=== PATIENT | male | born 1945 | race Two or more races ===

== ENCOUNTER 2020-04-06 01:27 | Inpatient (IN) | payer MEDICARE, MEDICAID ==
[~2020-04-06] VITALS: Ht 162.6 cm; Wt 104.5 kg
[2020-04-06] VITALS (8 sets, daily range): BP systolic 105–187; BP diastolic 59–96
[2020-04-06] MEDS ORDERED: IOVERSOL 350 MG/ML 100 ML VIAL ONE (02:08)
[2020-04-06] MEDS ORDERED: SODIUM CHLORIDE 0.9% 100 ML ONE (02:08)
[2020-04-06] MEDS ORDERED: ONDANSETRON HCL 4 MG/2 ML VIAL IVP PRN ×2 (03:15→07:30)
[2020-04-06] MEDS ORDERED: ACETAMINOPHEN 325 MG TABLET PO PRN ×2 (03:15→07:30)
[2020-04-06] MEDS ORDERED: HEPARIN SODIUM,PORCINE 5,000 UNITS/ML VIAL IVP PRN ×2 (04:45)
[2020-04-06 05:07] LABS: PROTHROMBIN TIME 10.4 SEC (9.4-11.6)
[2020-04-06] MEDS ORDERED: HEPARIN SODIUM,PORCINE 5,000 UNITS/ML VIAL ONE (06:14)
[2020-04-06] MEDS ORDERED: HEPARIN SODIUM,PORCINE 1,000 UNITS/ML VIAL ONE (06:15)
[2020-04-06] MEDS: HEPARIN SODIUM 25000 UNITS/D5W 250 ML IV PRN ×2 (06:18→21:57)
[2020-04-06] MEDS ORDERED: MAGNESIUM HYDROXIDE SUSPENSION 30 ML UDCUP PO PRN (07:30)
[2020-04-06] MEDS ORDERED: BISACODYL 10 MG RECTAL RECTAL SUPPOSITORY PR PRN (07:30)
[2020-04-06] MEDS ORDERED: HYDROCODONE/ACETAMINOPHEN 5-325 MG TABLET PO PRN (07:30)
[2020-04-06] MEDS ORDERED: ZOLPIDEM TARTRATE 5 MG TABLET PO PRN (07:30)
[2020-04-06] MEDS ORDERED: HEPARIN SODIUM,PORCINE 5,000 UNITS/ML VIAL SQ SCH (08:00)
[2020-04-06 08:05] LABS: ABG A-A DIFF O2 603.4 mmHg (10-20.0); ABG BASE EXCESS 7.1 mmol/L (-2.0-3.0); ABG CARBOXYHEMOGLOBIN 0.4 % (0.0-1.5); ABG HCO3 28.8 mmol/L (22.0-26.0); ABG METHEMOGLOBIN 0.2 % (0.0-1.5); ABG OXYGEN CONTENT 17.5 mL/dL (15.0-23.0); ABG OXYGEN SATURATION 85.4 % (95.0-98.0); ABG OXYHEMOGLOBIN 84.9 % (94.0-100.0); ABG PCO2 59 mmHg (35-45); ABG PH 7.356 (7.35-7.450); ABG TOTAL HEMOGLOBIN 14.7 G/dL (12.0-18.0); PO2, ARTERIAL BG 50.4 mmHg (75.0-83.0); SOURCE, BLOOD GAS ARTERIAL; TEMPERATURE, FAHRENHEIT, BG 98.5 FAHREN (96.0-98.6)
[2020-04-06 08:06] LABS: O2 DEVICE,BLOOD GAS NRB (ROOM AIR); SITE, BLOOD GAS RT RADIAL
[2020-04-06] MEDS ORDERED: AZITHROMYCIN 500 MG TABLET PO SCH (09:00)
[2020-04-06 09:29] LABS: BASOPHILS % (AUTO) 0.2 % (0.0-2.0); EOSINOPHILS % (AUTO) 0 % (1.0-6.0); HEMATOCRIT 41.1 % (41-53); HEMOGLOBIN 13.8 g/dL (13.5-17.5); LYMPHOCYTES # (AUTO) 0.4 K/uL (1.0-4.8); LYMPHOCYTES % (AUTO) 4.8 % (22.0-44.0); MEAN CORPUSCULAR HEMOGLOBIN 31.8 pg (26.0-34.0); MEAN CORPUSCULAR HGB CONC 33.6 G/dL (31.0-37.0); MEAN CORPUSCULAR VOLUME 95 fL (80-100); MONOCYTES # (AUTO) 0.4 K/uL (0.1-1.0); MONOCYTES % (AUTO) 4.7 % (2.0-9.0); NEUTROPHILS # (AUTO) 7.4 K/uL (1.8-7.7); PLATELET COUNT (AUTO) 207 K/uL (150-450); RED BLOOD CELL COUNT(AUTO) 4.34 MIL/uL (4.50-5.90); RED CELL DISTRIBUTION WIDTH 12.9 % (11.5-14.5)
[2020-04-06 09:33] LABS: NEUTROPHILS % (AUTO) 90.3 % (40.0-70.0)
[2020-04-06 09:45] LABS: ANION GAP 7 mmol/L (8-16); CALCIUM, TOTAL 8.3 mg/dL (8.8-10.5); CARBON DIOXIDE 35 mmol/L (22-29); CHLORIDE 100 mmol/L (98-107); CREATININE 1.09 mg/dL (0.60-1.30); GLUCOSE,RANDOM 184 mg/dL (70-110); POTASSIUM 4.1 mmol/L (3.5-5.1); SODIUM SERUM 142 mmol/L (136-145); UREA NITROGEN, BLOOD 18 mg/dL (7-18)
[2020-04-06 09:49] LABS: GLOMERULAR FILTR. RATE CALC > 60 mL/min (>60)
[2020-04-06 09:54] LABS: D-DIMER 0.66 mg/L FEU (0.00-0.50)
[2020-04-06] MEDS: DOCUSATE SODIUM 100 MG CAPSULE PO SCH ×2 (10:18→21:56)
[2020-04-06] MEDS: ASCORBIC ACID 500 MG TABLET PO SCH ×3 (10:18→21:56)
[2020-04-06] MEDS: THIAMINE 100 MG/ML 2 ML VIAL IVP SCH ×2 (10:18→21:55)
[2020-04-06] MEDS: PANTOPRAZOLE SODIUM 40 MG DR TABLET PO SCH (10:18)
[2020-04-06] MEDS: ZINC SULFATE 220 MG CAPSULE PO SCH ×2 (10:19→21:56)
[2020-04-06 10:24] LABS: ALANINE AMINOTRANSFERASE 46 U/L (12-78); ALBUMIN 2.8 g/dL (3.4-5.0); ALKALINE PHOSPHATASE 46 U/L (46-116); ASPARTATE AMINOTRANSFERASE 64 U/L (15-37); BILIRUBIN,TOTAL 0.8 mg/dL (0.1-1.0); C-REACTIVE PROTEIN QUANT 13.42 mg/dL (0.00-0.30); FERRITIN 1382 ng/mL (26-388); LACTATE DEHYDROGENASE 542 U/L (85-227); TOTAL PROTEIN, SERUM 7.7 g/dL (6.4-8.2)
[2020-04-06] MEDS ORDERED: HydrALAZINE HCL 20 MG/ML VIAL IVP PRN (11:30)
[2020-04-06 11:45] LABS: B-TYPE NATRIURETIC PEPTIDE 780 pg/mL (0-100)
[2020-04-06] MEDS: AmLODIPine BESYLATE 10 MG TABLET PO SCH (12:21)
[2020-04-06] MEDS: MORPHINE SULFATE 2 MG/ML SYRINGE IVP PRN (12:21)
[2020-04-06] MEDS ORDERED: SODIUM CHLORIDE 0.9% 250 ML IV ONE (12:42)
[2020-04-06] MEDS ORDERED: RINGERS SOLUTION,LACTATED 1,000 ML IV ONE (12:45)
[2020-04-06] MEDS ORDERED: REMDESIVIR **INVESTIGATIONAL** 200 MG in SODIUM CHLORIDE 0.9% 210 ML IV ONE (16:00)
[2020-04-06 16:55] LABS: ABG BASE EXCESS 7.9 mmol/L (-2.0-3.0); ABG CARBOXYHEMOGLOBIN 0.2 % (0.0-1.5); ABG HCO3 29.4 mmol/L (22.0-26.0); ABG METHEMOGLOBIN 0.3 % (0.0-1.5); ABG OXYGEN CONTENT 17.7 mL/dL (15.0-23.0); ABG OXYGEN SATURATION 90.5 % (95.0-98.0); ABG PH 7.317 (7.35-7.450); PO2, ARTERIAL BG 62.4 mmHg (75.0-83.0); SOURCE, BLOOD GAS ARTERIAL
[2020-04-06 16:56] LABS: ABG PCO2 68 mmHg (35-45); O2 DEVICE,BLOOD GAS VENT (ROOM AIR); PEEP,BG 15 cm H2O; SITE, BLOOD GAS ARTERIAL LINE; SPONTANEOUS VT, BG 404 ml; VT, ABG 450 ml
[2020-04-06] MEDS: PROPOFOL 1000 MG/ISO-OSM 100 ML IV PRN (18:42)
[2020-04-06] MEDS ORDERED: HYDROXYCHLOROQUINE SULFATE 200 MG TABLET PO ONE (23:30)
[2020-04-07] VITALS (9 sets, daily range): BP systolic 97–152; BP diastolic 42–54
[2020-04-07] MEDS: PROPOFOL 1000 MG/ISO-OSM 100 ML IV PRN ×6 (00:49→23:52)
[2020-04-07 06:41] LABS: BASOPHILS % (AUTO) 0.3 % (0.0-2.0); EOSINOPHILS % (AUTO) 0 % (1.0-6.0); HEMATOCRIT 39.2 % (41-53); HEMOGLOBIN 13.1 g/dL (13.5-17.5); LYMPHOCYTES # (AUTO) 0.5 K/uL (1.0-4.8); LYMPHOCYTES % (AUTO) 6.4 % (22.0-44.0); MEAN CORPUSCULAR HEMOGLOBIN 31.6 pg (26.0-34.0); MEAN CORPUSCULAR HGB CONC 33.3 G/dL (31.0-37.0); MEAN CORPUSCULAR VOLUME 95 fL (80-100); MONOCYTES # (AUTO) 0.3 K/uL (0.1-1.0); MONOCYTES % (AUTO) 3.5 % (2.0-9.0); NEUTROPHILS # (AUTO) 7.5 K/uL (1.8-7.7); PLATELET COUNT (AUTO) 221 K/uL (150-450); RED BLOOD CELL COUNT(AUTO) 4.12 MIL/uL (4.50-5.90); RED CELL DISTRIBUTION WIDTH 13.4 % (11.5-14.5)
[2020-04-07 06:49] LABS: NEUTROPHILS % (AUTO) 89.8 % (40.0-70.0)
[2020-04-07 07:20] LABS: D-DIMER 0.69 mg/L FEU (0.00-0.50)
[2020-04-07 08:23] LABS: ALBUMIN 2.4 g/dL (3.4-5.0); BILIRUBIN,TOTAL 0.6 mg/dL (0.1-1.0); C-REACTIVE PROTEIN QUANT 19.18 mg/dL (0.00-0.30); CREATININE 1.69 mg/dL (0.60-1.30)
[2020-04-07] MEDS: DOCUSATE SODIUM 100 MG CAPSULE PO SCH ×2 (08:57→21:03)
[2020-04-07] MEDS: THIAMINE 100 MG/ML 2 ML VIAL IVP SCH ×2 (08:57→21:04)
[2020-04-07] MEDS: ZINC SULFATE 220 MG CAPSULE PO SCH ×2 (08:57→21:03)
[2020-04-07] MEDS: PANTOPRAZOLE SODIUM 40 MG DR TABLET PO SCH (08:57)
[2020-04-07] MEDS: AmLODIPine BESYLATE 10 MG TABLET PO SCH (08:57)
[2020-04-07] MEDS: ASCORBIC ACID 500 MG TABLET PO SCH ×3 (08:57→21:03)
[2020-04-07] MEDS ORDERED: SODIUM CHLORIDE 0.9% 250 ML IV ONE (18:08)
[2020-04-07] MEDS: REMDESIVIR **INVESTIGATIONAL** 100 MG in SODIUM CHLORIDE 0.9% 230 ML IV SCH (19:16)
[2020-04-07] MEDS: HEPARIN SODIUM 25000 UNITS/D5W 250 ML IV PRN (20:00)
[2020-04-07] MEDS ORDERED: SODIUM CHLORIDE 0.9% 500 ML IV ONE (23:46)
[2020-04-08] VITALS: BP 115/42
[2020-04-08] MEDS: PROPOFOL 1000 MG/ISO-OSM 100 ML IV PRN ×6 (03:30→23:10)
[2020-04-08 04:00] VITALS: BP 112/42
[2020-04-08 05:58] LABS: D-DIMER 1.07 mg/L FEU (0.00-0.50)
[2020-04-08 06:24] LABS: ALBUMIN 2.2 g/dL (3.4-5.0); BILIRUBIN,TOTAL 0.5 mg/dL (0.1-1.0); C-REACTIVE PROTEIN QUANT 22.59 mg/dL (0.00-0.30); CALCIUM, TOTAL 7.4 mg/dL (8.8-10.5); CREATININE 2.47 mg/dL (0.60-1.30); POTASSIUM 3.8 mmol/L (3.5-5.1); TOTAL PROTEIN, SERUM 6.5 g/dL (6.4-8.2)
[2020-04-08 08:00] VITALS: BP 119/42
[2020-04-08 08:32] LABS: ABG BASE EXCESS 5.6 mmol/L (-2.0-3.0); ABG CARBOXYHEMOGLOBIN 0.5 % (0.0-1.5); ABG HCO3 28.2 mmol/L (22.0-26.0); ABG METHEMOGLOBIN 0.3 % (0.0-1.5); ABG OXYGEN CONTENT 16.7 mL/dL (15.0-23.0); ABG OXYGEN SATURATION 95.9 % (95.0-98.0); ABG OXYHEMOGLOBIN 95.1 % (94.0-100.0); ABG PCO2 58 mmHg (35-45); ABG TOTAL HEMOGLOBIN 12.4 G/dL (12.0-18.0); O2 DEVICE,BLOOD GAS VENTILATOR (ROOM AIR); PEEP,BG 15 cm H2O; PO2, ARTERIAL BG 84.2 mmHg (75.0-83.0); SITE, BLOOD GAS ARTERIAL LINE; SOURCE, BLOOD GAS ARTERIAL; TEMPERATURE, FAHRENHEIT, BG 98.6 FAHREN (96.0-98.6); VT, ABG 450 ml
[2020-04-08] MEDS: ASCORBIC ACID 500 MG TABLET PO SCH ×3 (08:32→20:37)
[2020-04-08] MEDS: PANTOPRAZOLE SODIUM 40 MG DR TABLET PO SCH (08:32)
[2020-04-08] MEDS: THIAMINE 100 MG/ML 2 ML VIAL IVP SCH ×2 (08:32→20:38)
[2020-04-08] MEDS: ZINC SULFATE 220 MG CAPSULE PO SCH ×2 (08:32→20:37)
[2020-04-08] MEDS: DOCUSATE SODIUM 100 MG CAPSULE PO SCH ×2 (08:32→20:37)
[2020-04-08] MEDS: AmLODIPine BESYLATE 10 MG TABLET PO SCH (08:32)
[2020-04-08 12:00] VITALS: BP 142/42
[2020-04-08] MEDS: SODIUM CHLORIDE 0.9% 1,000 ML IV SCH (12:14)
[2020-04-08] MEDS: MORPHINE SULFATE 2 MG/ML SYRINGE IVP PRN ×2 (12:45→18:55)
[2020-04-08] MEDS: HEPARIN SODIUM 25000 UNITS/D5W 250 ML IV PRN (15:19)
[2020-04-08 16:00] VITALS: BP 138/42
[2020-04-08] MEDS ORDERED: DEXTROSE 50%-WATER 25 GM/50 ML SYRINGE IVP PRN (16:45)
[2020-04-08] MEDS: REMDESIVIR **INVESTIGATIONAL** 100 MG in SODIUM CHLORIDE 0.9% 230 ML IV SCH (18:00)
[2020-04-08] MEDS: INSULIN REGULAR, HUMAN 100 UNITS/ML SQ PRN ×2 (18:11→23:48)
[2020-04-08 20:00] VITALS: BP 142/39
[2020-04-08 20:37] LABS: GLUCOSE,POINT OF CARE 155 MG/DL (70-110)
[2020-04-08 20:37] LABS: GLUCOSE,POINT OF CARE 168 MG/DL (70-110)
[2020-04-08 21:01] LABS: CREATININE,URINE RANDOM 191.9 mg/dL (30.0-125.0)
[2020-04-08 21:02] LABS: APPEARANCE,URINE CLOUDY (CLEAR); BILIRUBIN,URINE NEGATIVE (NEGATIVE); GLUCOSE, URINE (UA) NEGATIVE (NEGATIVE); KETONES,URINE NEGATIVE (NEGATIVE); LEUKOCYTE ESTERASE ,URINE NEGATIVE (NEGATIVE); NITRATE,URINE NEGATIVE (NEGATIVE); OCCULT BLOOD,URINE LARGE (NEGATIVE); PROTEIN,URINE TRACE (NEGATIVE); UROBILINOGEN,URINE 0.2 mg/dL (<=1.0)
[2020-04-08 21:16] LABS: RBC,URINE 26-50 /HPF (0-2)
[2020-04-08 21:17] LABS: BACTERIA,URINE Many /HPF (None Seen); WBC,URINE 0-2 /HPF (0-5)
[2020-04-08 21:19] LABS: AMORPHOUS SEDIMENT,UR Few /LPF (None Seen); SQUAMOUS EPITHELIAL CELL,UR Rare /LPF (None Seen)
[2020-04-08 22:12] LABS: ABG A-A DIFF O2 596.6 mmHg (10-20.0); ABG BASE EXCESS 1.2 mmol/L (-2.0-3.0); ABG CARBOXYHEMOGLOBIN 0.3 % (0.0-1.5); ABG METHEMOGLOBIN 0.3 % (0.0-1.5); ABG OXYGEN CONTENT 16.4 mL/dL (15.0-23.0); ABG OXYGEN SATURATION 91.5 % (95.0-98.0); ABG PCO2 49 mmHg (35-45); ABG PH 7.356 (7.35-7.450); ABG TOTAL HEMOGLOBIN 12.8 G/dL (12.0-18.0); O2 DEVICE,BLOOD GAS VENTILATOR (ROOM AIR); PEEP,BG 15 cm H2O; SITE, BLOOD GAS ARTERIAL LINE; SOURCE, BLOOD GAS ARTERIAL; TEMPERATURE, FAHRENHEIT, BG 99.6 FAHREN (96.0-98.6); VT, ABG 450 ml
[2020-04-08] MEDS: FentaNYL CITRATE PF 500 MCG in DEXTROSE 5%-WATER 90 ML IV PRN (22:42)
[2020-04-08] MEDS: CISATRACURIUM BESYLATE 20 MG in DEXTROSE 5%-WATER 98 ML IV PRN ×3 (22:43→23:58)
[2020-04-09] VITALS: BP 149/58
[2020-04-09] MEDS: CISATRACURIUM BESYLATE 20 MG in DEXTROSE 5%-WATER 98 ML IV PRN ×6 (00:42→04:34)
[2020-04-09] MEDS: FentaNYL CITRATE PF 500 MCG in DEXTROSE 5%-WATER 90 ML IV PRN ×5 (00:52→18:09)
[2020-04-09 01:02] LABS: GLUCOSE,POINT OF CARE 211 MG/DL (70-110)
[2020-04-09] MEDS: PROPOFOL 1000 MG/ISO-OSM 100 ML IV PRN ×5 (03:13→20:37)
[2020-04-09 04:00] VITALS: BP 107/58
[2020-04-09] MEDS: SODIUM CHLORIDE 0.9% 1,000 ML IV SCH (04:34)
[2020-04-09] MEDS: HEPARIN SODIUM 25000 UNITS/D5W 250 ML IV PRN ×2 (05:41→21:38)
[2020-04-09] MEDS: INSULIN REGULAR, HUMAN 100 UNITS/ML SQ PRN ×2 (05:54→23:26)
[2020-04-09] MEDS: NOREPINEPHRINE BITARTRATE 16 MG in DEXTROSE 5%-WATER 234 ML IV PRN (06:01)
[2020-04-09 06:18] LABS: BASOPHILS % (AUTO) 0.2 % (0.0-2.0); EOSINOPHILS % (AUTO) 0.1 % (1.0-6.0); HEMATOCRIT 35.1 % (41-53); HEMOGLOBIN 11.8 g/dL (13.5-17.5); LYMPHOCYTES # (AUTO) 0.4 K/uL (1.0-4.8); LYMPHOCYTES % (AUTO) 3.8 % (22.0-44.0); MEAN CORPUSCULAR HGB CONC 33.6 G/dL (31.0-37.0); MEAN CORPUSCULAR VOLUME 95 fL (80-100); MONOCYTES # (AUTO) 0.3 K/uL (0.1-1.0); NEUTROPHILS # (AUTO) 10.6 K/uL (1.8-7.7); PLATELET COUNT (AUTO) 288 K/uL (150-450); RED BLOOD CELL COUNT(AUTO) 3.68 MIL/uL (4.50-5.90); RED CELL DISTRIBUTION WIDTH 13.4 % (11.5-14.5)
[2020-04-09] MEDS: CISATRACURIUM BESYLATE 50 MG in DEXTROSE 5%-WATER 245 ML IV PRN ×7 (06:28→23:24)
[2020-04-09 06:54] LABS: D-DIMER 2.49 mg/L FEU (0.00-0.50)
[2020-04-09 07:01] LABS: NEUTROPHILS % (AUTO) 92.9 % (40.0-70.0)
[2020-04-09 07:26] LABS: ALBUMIN 1.8 g/dL (3.4-5.0); BILIRUBIN,TOTAL 0.5 mg/dL (0.1-1.0); CALCIUM, TOTAL 6.9 mg/dL (8.8-10.5); CREATININE 3.14 mg/dL (0.60-1.30); MAGNESIUM 2.3 mg/dL (1.80-2.40); PHOSPHORUS 6.4 mg/dL (2.5-4.9); POTASSIUM 3.6 mmol/L (3.5-5.1); TOTAL PROTEIN, SERUM 6.2 g/dL (6.4-8.2)
[2020-04-09 07:46] LABS: C-REACTIVE PROTEIN QUANT 26.3 mg/dL (0.00-0.30)
[2020-04-09 08:00] VITALS: BP 116/42
[2020-04-09] MEDS: AmLODIPine BESYLATE 10 MG TABLET PO SCH (09:00)
[2020-04-09] MEDS: DOCUSATE SODIUM 100 MG CAPSULE PO SCH ×2 (09:06→20:35)
[2020-04-09] MEDS: ASCORBIC ACID 500 MG TABLET PO SCH ×3 (09:06→20:35)
[2020-04-09] MEDS: THIAMINE 100 MG/ML 2 ML VIAL IVP SCH ×2 (09:06→20:35)
[2020-04-09] MEDS: PANTOPRAZOLE SODIUM 40 MG DR TABLET PO SCH (09:06)
[2020-04-09] MEDS: ZINC SULFATE 220 MG CAPSULE PO SCH ×2 (09:07→20:35)
[2020-04-09 12:00] VITALS: BP 123/42
[2020-04-09 12:56] LABS: GLUCOSE,POINT OF CARE 236 MG/DL (70-110)
[2020-04-09 15:07] LABS: ABG A-A DIFF O2 588.4 mmHg (10-20.0); ABG BASE EXCESS 0.1 mmol/L (-2.0-3.0); ABG CARBOXYHEMOGLOBIN 0.4 % (0.0-1.5); ABG HCO3 23.2 mmol/L (22.0-26.0); ABG METHEMOGLOBIN 0.3 % (0.0-1.5); ABG OXYGEN CONTENT 16.1 mL/dL (15.0-23.0); ABG OXYGEN SATURATION 92.7 % (95.0-98.0); ABG OXYHEMOGLOBIN 92.1 % (94.0-100.0); ABG PH 7.227 (7.35-7.450); ABG TOTAL HEMOGLOBIN 12.4 G/dL (12.0-18.0); PO2, ARTERIAL BG 61.4 mmHg (75.0-83.0); SOURCE, BLOOD GAS ARTERIAL; TEMPERATURE, FAHRENHEIT, BG 95.5 FAHREN (96.0-98.6)
[2020-04-09 15:08] LABS: ABG PCO2 68 mmHg (35-45); O2 DEVICE,BLOOD GAS VENTILATOR (ROOM AIR); PEEP,BG 15 cm H2O; VT, ABG 450 ml
[2020-04-09 16:00] VITALS: BP 135/42
[2020-04-09] MEDS ORDERED: *CLINICAL-CEFEPIME DOSING CLINICAL ONE (17:45)
[2020-04-09] MEDS: DAPTOMYCIN 500 MG in SODIUM CHLORIDE 0.9% 50 ML IV SCH (19:16)
[2020-04-09] MEDS: CEFEPIME HCL 2 GM in DEXTROSE 5%-WATER 50 ML IV SCH (19:16)
[2020-04-09 19:37] LABS: SITE, BLOOD GAS ARTERIAL LINE
[2020-04-09 20:00] VITALS: BP 120/43
[2020-04-09] MEDS ORDERED: SODIUM CHLORIDE 0.9% 1,000 ML ONE (20:33)
[2020-04-10] VITALS: BP 117/46
[2020-04-10] MEDS: CISATRACURIUM BESYLATE 50 MG in DEXTROSE 5%-WATER 245 ML IV PRN ×9 (01:39→22:36)
[2020-04-10 04:00] VITALS: BP 100/43
[2020-04-10] MEDS: PROPOFOL 1000 MG/ISO-OSM 100 ML IV PRN ×4 (04:19→20:09)
[2020-04-10] MEDS: FentaNYL CITRATE PF 500 MCG in DEXTROSE 5%-WATER 90 ML IV PRN ×2 (04:19→14:48)
[2020-04-10] MEDS: INSULIN REGULAR, HUMAN 100 UNITS/ML SQ PRN ×2 (05:32→23:18)
[2020-04-10 06:07] LABS: HEMATOCRIT 34.4 % (41-53); HEMOGLOBIN 11.5 g/dL (13.5-17.5); MEAN CORPUSCULAR HEMOGLOBIN 31.7 pg (26.0-34.0); MEAN CORPUSCULAR HGB CONC 33.4 G/dL (31.0-37.0); MEAN CORPUSCULAR VOLUME 95 fL (80-100); PLATELET COUNT (AUTO) 303 K/uL (150-450); RED BLOOD CELL COUNT(AUTO) 3.62 MIL/uL (4.50-5.90); RED CELL DISTRIBUTION WIDTH 13.3 % (11.5-14.5)
[2020-04-10 06:43] LABS: D-DIMER 3.6 mg/L FEU (0.00-0.50)
[2020-04-10 07:03] LABS: GLUCOSE,POINT OF CARE 163 MG/DL (70-110)
[2020-04-10 08:00] VITALS: BP 102/43
[2020-04-10 08:21] LABS: ALBUMIN 1.7 g/dL (3.4-5.0); BILIRUBIN,TOTAL 0.9 mg/dL (0.1-1.0); CALCIUM, TOTAL 6.3 mg/dL (8.8-10.5); CREATININE 4.5 mg/dL (0.60-1.30); POTASSIUM 4.4 mmol/L (3.5-5.1)
[2020-04-10] MEDS: DOCUSATE SODIUM 100 MG CAPSULE PO SCH ×2 (08:26→21:24)
[2020-04-10] MEDS: ZINC SULFATE 220 MG CAPSULE PO SCH ×2 (08:26→21:24)
[2020-04-10] MEDS: PANTOPRAZOLE SODIUM 40 MG DR TABLET PO SCH (08:26)
[2020-04-10] MEDS: THIAMINE 100 MG/ML 2 ML VIAL IVP SCH ×2 (08:27→21:24)
[2020-04-10] MEDS: ASCORBIC ACID 500 MG TABLET PO SCH ×3 (08:27→21:24)
[2020-04-10] MEDS: AmLODIPine BESYLATE 10 MG TABLET PO SCH (08:30)
[2020-04-10 08:44] LABS: C-REACTIVE PROTEIN QUANT 28.59 mg/dL (0.00-0.30)
[2020-04-10 10:37] LABS: BAND NEUTROPHILS % (MANUAL) 23 % (0-5); LYMPHOCYTES % (MANUAL) 5 % (22-44); MONOCYTES % (MANUAL) 4 % (2-9); SEGMENTED NEUTROPHILS % 68 % (40-70)
[2020-04-10 12:00] VITALS: BP 101/42
[2020-04-10 16:00] VITALS: BP 143/48
[2020-04-10] MEDS ORDERED: HEPARIN SODIUM,PORCINE 1,000 UNITS/ML VIAL ONE (16:41)
[2020-04-10] MEDS ORDERED: HEPARIN SODIUM,PORCINE 1,000 UNITS/ML VIAL IVP ONE (16:45)
[2020-04-10 17:44] LABS: GLUCOMETER DEV NAME(LOC) 4E.2; GLUCOSE,POINT OF CARE 202 MG/DL (70-110)
[2020-04-10] MEDS ORDERED: SODIUM CHLORIDE 0.9% 250 ML IV ONE (17:44)
[2020-04-10 17:45] LABS: GLUCOMETER DEV NAME(LOC) 4E.2; GLUCOSE,POINT OF CARE 202 MG/DL (70-110)
[2020-04-10] MEDS: CEFEPIME HCL 2 GM in DEXTROSE 5%-WATER 50 ML IV SCH (18:52)
[2020-04-10 20:00] VITALS: BP 128/45
[2020-04-10 22:14] LABS: CREATININE 5.44 mg/dL (0.60-1.30); POTASSIUM 5.2 mmol/L (3.5-5.1)
[2020-04-10 22:24] LABS: PHOSPHORUS 9.6 mg/dL (2.5-4.9)
[2020-04-11] VITALS: BP 119/46
[2020-04-11] MEDS: PROPOFOL 1000 MG/ISO-OSM 100 ML IV PRN ×2 (00:59→07:55)
[2020-04-11] MEDS: FentaNYL CITRATE PF 500 MCG in DEXTROSE 5%-WATER 90 ML IV PRN ×2 (01:00→09:40)
[2020-04-11] MEDS ORDERED: ATROPINE SULFATE 0.1 MG/ML 10 ML SYRINGE IVP ONE ×2 (02:43→02:47)
[2020-04-11] MEDS ORDERED: DOPamine HCL 400 MG/D5%-WATER 250 ML IV ONE (02:51)
[2020-04-11] MEDS: DOPamine HCL 400 MG/D5%-WATER 250 ML IV PRN ×2 (03:00→06:39)
[2020-04-11 04:00] VITALS: BP 143/52
[2020-04-11 06:01] LABS: GLUCOMETER DEV NAME(LOC) 4E.2; GLUCOSE,POINT OF CARE 180 MG/DL (70-110)
[2020-04-11 06:01] LABS: GLUCOMETER DEV NAME(LOC) 4E.2; GLUCOSE,POINT OF CARE 188 MG/DL (70-110)
[2020-04-11 06:02] LABS: GLUCOMETER DEV NAME(LOC) 4E.2; GLUCOSE,POINT OF CARE 225 MG/DL (70-110)
[2020-04-11] MEDS: INSULIN REGULAR, HUMAN 100 UNITS/ML SQ PRN ×3 (06:12→17:39)
[2020-04-11 07:19] LABS: ALBUMIN 1.8 g/dL (3.4-5.0); BILIRUBIN,TOTAL 1.8 mg/dL (0.1-1.0); CALCIUM, TOTAL 6.2 mg/dL (8.8-10.5); CREATININE 5.88 mg/dL (0.60-1.30); POTASSIUM 5.4 mmol/L (3.5-5.1)
[2020-04-11] MEDS ORDERED: PHENYLEPHRINE HCL 800 MG in DEXTROSE 5%-WATER 170 ML IV PRN (07:21)
[2020-04-11 07:31] LABS: C-REACTIVE PROTEIN QUANT 30.26 mg/dL (0.00-0.30)
[2020-04-11 07:35] LABS: D-DIMER 4.23 mg/L FEU (0.00-0.50)
[2020-04-11] MEDS: NOREPINEPHRINE BITARTRATE 16 MG in DEXTROSE 5%-WATER 234 ML IV PRN (07:52)
[2020-04-11 08:00] VITALS: BP 144/52
[2020-04-11] MEDS ORDERED: DOPamine HCL 800 MG/D5%-WATER 250 ML IV PRN (08:15)
[2020-04-11] MEDS: ZINC SULFATE 220 MG CAPSULE PO SCH ×3 (08:26→21:16)
[2020-04-11] MEDS: DOCUSATE SODIUM 100 MG CAPSULE PO SCH ×3 (08:26→21:16)
[2020-04-11] MEDS: ASCORBIC ACID 500 MG TABLET PO SCH ×4 (08:26→21:16)
[2020-04-11] MEDS: THIAMINE 100 MG/ML 2 ML VIAL IVP SCH ×3 (08:26→21:16)
[2020-04-11] MEDS: AmLODIPine BESYLATE 10 MG TABLET PO SCH (08:27)
[2020-04-11] MEDS: PANTOPRAZOLE SODIUM 40 MG DR TABLET PO SCH (08:27)
[2020-04-11 08:56] LABS: BASOPHILS % (AUTO) 0.5 % (0.0-2.0); EOSINOPHILS % (AUTO) 0.2 % (1.0-6.0); HEMATOCRIT 37.8 % (41-53); HEMOGLOBIN 12.1 g/dL (13.5-17.5); LYMPHOCYTES # (AUTO) 0.6 K/uL (1.0-4.8); LYMPHOCYTES % (AUTO) 3.9 % (22.0-44.0); MEAN CORPUSCULAR HEMOGLOBIN 30.8 pg (26.0-34.0); MEAN CORPUSCULAR VOLUME 96 fL (80-100); MONOCYTES # (AUTO) 0.3 K/uL (0.1-1.0); MONOCYTES % (AUTO) 1.8 % (2.0-9.0); PLATELET COUNT (AUTO) 384 K/uL (150-450); RED BLOOD CELL COUNT(AUTO) 3.93 MIL/uL (4.50-5.90); RED CELL DISTRIBUTION WIDTH 13.4 % (11.5-14.5)
[2020-04-11 08:57] LABS: NEUTROPHILS % (AUTO) 93.6 % (40.0-70.0)
[2020-04-11] MEDS ORDERED: SODIUM CHLORIDE 0.9% 2,000 ML ONE (10:26)
[2020-04-11] MEDS ORDERED: POTASSIUM CHLORIDE 20 MEQ in NXSTAGE RFP-402 K0/CA3 5,000 ML IRRIG PRN (10:30)
[2020-04-11] MEDS: CISATRACURIUM BESYLATE 100 MG in DEXTROSE 5%-WATER 240 ML IV PRN ×2 (10:36→16:56)
[2020-04-11 12:00] VITALS: BP 129/49
[2020-04-11] MEDS: VASOPRESSIN 40 UNITS in DEXTROSE 5%-WATER 98 ML IV PRN (12:13)
[2020-04-11 13:04] LABS: OCCULT BLOOD,GASTRIC FLUID NEGATIVE (NEGATIVE)
[2020-04-11] MEDS: CEFEPIME HCL 2 GM in DEXTROSE 5%-WATER 50 ML IV SCH (13:22)
[2020-04-11] MEDS ORDERED: *CLINICAL-LEVOFLOXACIN IVPB DOSING CLINICAL ONE (14:45)
[2020-04-11 16:00] VITALS: BP 146/52
[2020-04-11] MEDS ORDERED: LEVOFLOXACIN 750 MG/D5% WATER 150 ML IV ONE (16:00)
[2020-04-11] MEDS: PANTOPRAZOLE SODIUM 40 MG/VIAL IVP SCH ×2 (16:11→21:15)
[2020-04-11] MEDS: DOPamine HCL 800 MG/D5%-WATER 250 ML IV PRN (16:56)
[2020-04-11] MEDS: DAPTOMYCIN 500 MG in SODIUM CHLORIDE 0.9% 50 ML IV SCH (17:38)
[2020-04-11 18:08] LABS: GLUCOMETER DEV NAME(LOC) 4E.2; GLUCOSE,POINT OF CARE 219 MG/DL (70-110)
[2020-04-11 18:08] LABS: GLUCOSE,POINT OF CARE 263 MG/DL (70-110)
[2020-04-11 20:00] VITALS: BP 144/50
[2020-04-12] VITALS: BP 137/45
[2020-04-12] MEDS ORDERED: SODIUM CHLORIDE 0.9% 250 ML IV ONE (00:01)
[2020-04-12] MEDS: CISATRACURIUM BESYLATE 100 MG in DEXTROSE 5%-WATER 240 ML IV PRN (00:28)
[2020-04-12] MEDS: PROPOFOL 1000 MG/ISO-OSM 100 ML IV PRN (00:31)
[2020-04-12] MEDS: CEFEPIME HCL 2 GM in DEXTROSE 5%-WATER 50 ML IV SCH (01:08)
[2020-04-12] MEDS: DOPamine HCL 800 MG/D5%-WATER 250 ML IV PRN (01:47)
[2020-04-12] MEDS: HEPARIN SODIUM 25000 UNITS/D5W 250 ML IV PRN (02:57)
[2020-04-12] MEDS: VASOPRESSIN 40 UNITS in DEXTROSE 5%-WATER 98 ML IV PRN (03:09)
[2020-04-12 03:32] LABS: GLUCOMETER DEV NAME(LOC) 4E.2; GLUCOSE,POINT OF CARE 169 MG/DL (70-110)
[2020-04-12 04:00] VITALS: BP 106/38
[2020-04-12 06:49] LABS: D-DIMER 7.51 mg/L FEU (0.00-0.50)
[2020-04-12 06:58] LABS: GLUCOSE,POINT OF CARE 145 MG/DL (70-110)
[2020-04-12 07:19] LABS: ALBUMIN 1.4 g/dL (3.4-5.0); BILIRUBIN,TOTAL 2.1 mg/dL (0.1-1.0); CREATININE 6.43 mg/dL (0.60-1.30); MAGNESIUM 1.8 mg/dL (1.80-2.40); TOTAL PROTEIN, SERUM 6.2 g/dL (6.4-8.2)
[2020-04-12 07:41] LABS: POTASSIUM 6.2 mmol/L (3.5-5.1)
[2020-04-12 07:42] LABS: C-REACTIVE PROTEIN QUANT 28.41 mg/dL (0.00-0.30); PHOSPHORUS 11.3 mg/dL (2.5-4.9)
[2020-04-12] MEDS ORDERED: ATROPINE SULFATE 0.1 MG/ML 10 ML SYRINGE IVP ONE (13:19)
[2020-04-12] MEDS ORDERED: EPINEPHrine 1:10,000 [1 MG/10 ML] SYRINGE IVP ONE (13:19)
[2020-04-12] MEDS ORDERED: HEPARIN SODIUM,PORCINE 1,000 UNITS/ML 10 ML VIAL IV ONE (13:19)
[2020-04-12] MEDS ORDERED: LEVOFLOXACIN 500 MG/D5% WATER 100 ML IV SCH (16:00)
== END 2020-04-12 13:20 | disposition expired | DRG 207 ==
LOC: EDBD 01:29 → EMS 01:29 → UNDOADMIN 03:24 → ICU 03:24
PROVIDERS: ADMIT Internal Medicine; ATTEND Internal Medicine
PROC: 5A1955Z Respiratory Ventilation, Greater than 96 Consecutive Hours (ICD-10-PCS; principal; 2020-04-06)
PROC: 0BH17EZ Insertion of Endotracheal Airway into Trachea, Via Natural or Artificial Opening (ICD-10-PCS; 2020-04-06)
PROC: 30233M1 Transfusion of Nonautologous Plasma Cryoprecipitate into Peripheral Vein, Percutaneous Approach (ICD-10-PCS; 2020-04-07)
PROC: 06HY33Z Insertion of Infusion Device into Lower Vein, Percutaneous Approach (ICD-10-PCS; 2020-04-10)
PROC: B54CZZA Ultrasonography of Left Lower Extremity Veins, Guidance (ICD-10-PCS; 2020-04-10)
PROC: 5A1D70Z Performance of Urinary Filtration, Intermittent, Less than 6 Hours Per Day (ICD-10-PCS; 2020-04-11)
DX: U07.1 COVID-19 (principal); J12.89 Other viral pneumonia; J96.01 Acute respiratory failure with hypoxia; E87.1 Hypo-osmolality and hyponatremia; D68.59 Other primary thrombophilia; N17.9 Acute kidney failure, unspecified; I50.9 Heart failure, unspecified; I11.0 Hypertensive heart disease with heart failure; F17.210 Nicotine dependence, cigarettes, uncomplicated; I95.9 Hypotension, unspecified; I46.9 Cardiac arrest, cause unspecified; R73.9 Hyperglycemia, unspecified
CPT/HCPCS: 36600; 71275; 82271; 82570; 82728; 82805; 83615; 83735; 84100; 84145; 84300; 84540; 85379; 85384; 86140; 86850; 86900; 86901; 86927; 87040; 87081; 87086; 90935; 93005; 94002; 94003; C9113; G0238; G0378; J0171; J0360; J0461; J0692; J0878; J1265; J1644; J1956; J2270; J2704; J3010; J3411; J3480; J3490; J7030; J7040; J7050; J7060; J7120